=== PATIENT | male | born 1980 | race Caucasian/White ===

== ENCOUNTER 2021-09-17 11:28 | Emergency (ER) | payer SELFPAY ==
[2021-09-17 11:33] VITALS: BP 123/79; PULSE 74; RESP 18; TEMP 36.6; O2SAT 98; BMI 25.1
[2021-09-17 12:41] LABS: Appearance Urine Cloudy (Clear); Bilirubin Urine Negative (Negative); Color Urine Red (Yellow); Glucose Urine Negative (Negative); Ketones Urine Negative (Negative); Specific Gravity Urine 1.025 (1.000-1.030)
[2021-09-17 12:42] LABS: Blood Urine 3+ (Negative); Leukocyte Esterase Urine 2+ (Negative); Nitrite Urine Negative (Negative); Protein Urine 2+ (Negative)
[2021-09-17 12:46] LABS: RBC Urine >100 (0-2); Squamous Epithelial Cell Urine Few (None-Few); WBC Urine 50-100 (0-5)
--- NOTE | 2021-09-17 13:47 | CRLHL7_ITS ---
For Patients: As a result of the Century Cures Act, medical imaging exams and procedure reports are released immediately into your electronic medical record. You may view this report before your referring provider. If you have questions, please contact your health care provider. INDICATION: HEMATURIA CT ABDOMEN AND PELVIS WITHOUT CONTRAST TECHNIQUE: Multidetector CT imaging was performed through the abdomen and pelvis without intravenous contrast administration. Coronal and sagittal reconstructions were generated. COMPARISON: None. FINDINGS: The exam is mildly limited by motion. Lower chest: Lung bases are clear. Liver: Suggestion of poorly defined 2.5 centimeter hypodense area in the central liver just superior to the gallbladder fossa, as on image 34 of series 2 and image 27 of series 4, not well characterized. Gallbladder and bile ducts: No gallbladder wall thickening or calcified gallstones. No biliary dilation identified. Pancreas: Unremarkable. Spleen: Normal. Adrenals: No nodules or masses. Kidneys, ureters, and urinary bladder: No urinary tract stones are identified. No hydronephrosis is noted. No obvious renal masses. Diffuse bladder wall prominence due to nondistention. No bladder mass or definite pathologic wall thickening. Gastrointestinal tract: Normal caliber bowel without apparent obstruction or wall thickening. Appendix not clearly identified. Vascular structures: Normal caliber abdominal aorta. Trace atherosclerotic calcification. Peritoneum: No free air, abscess, or significant free fluid. Lymph nodes: No pathologically enlarged nodes identified. Reproductive organs: No pelvic masses. Bones: Normal for age. IMPRESSION: 1. No acute abnormality identified. No urinary tract stones are seen. No definite cause for the patient`s hematuria is demonstrated. 2. Question of 2.5 centimeter hypodense lesion in the central liver just superior to the gallbladder fossa, not well characterized. Outpatient liver MRI is suggested for further evaluation. ADAN FISHMAN MD [facility] Dictated by Angel Castro MD @ 09/17/2021 3:50:12 PM Please note that all CT scans at this facility use dose modulation, iterative reconstruction, and/or weight-based dosing when appropriate to reduce radiation dose to as low as reasonably achievable. Dictated by: Mervin Fishman MD @ 09/17/2021 15:51:42 (Electronically Signed)
[2021-09-17] MEDS: 0.9 % SODIUM CHLORIDE 1000 ml 1,000 ML IV (14:15)
[2021-09-17 14:17] VITALS: BP 126/84; PULSE 65; RESP 18; O2SAT 98
[2021-09-17 14:33] LABS: Basophils Percent Auto 0.2 % (0.0-3.0); Eosinophils Percent Auto 1.8 % (0.0-7.0); Hematocrit 47.1 % (37.0-53.0); Hemoglobin* 15.9 gm/dL (13.5-17.5); Immature Granulocytes Abs Auto 0.06 K/uL (0.00-0.30); Mean Corpuscular HGB Conc 34 gm/dL (32-36); Mean Corpuscular Hemoglobin 30 pg (26-34); Mean Corpuscular Volume 90 fL (80-100); Monocytes Percent Auto 5.6 % (0.0-11.0); Neutrophils Percent Auto 76.9 % (42.0-72.0); Platelet Count* 248 K/uL (140-440); RDW Coefficient of Variation % 12.4 % (11.5-15.5); Red Blood Count 5.23 m/uL (4.30-5.90); White Blood Count* 11.51 K/uL (4.50-11.00)
[2021-09-17 14:35] LABS: Slide Review Reflex No
--- NOTE | 2021-09-17 14:37 | ED_ITS ---
HPI - General Adult General Date Seen: 09/17/21 Chief complaint: Urogenital Problems, Male Stated complaint: Blood in urine Time Seen by Provider: 09/17/21 12:36 Source: patient Mode of arrival: ambulatory Limitations: no limitations History of Present Illness HPI narrative: Patient is a 40-year-old gentleman who presents here with blood in his urine. He has noted for last couple days, is associated with mild dysuria at least yesterday. He had some back pain for the last 3 weeks after he injured self on the job. He says he may have has some slight abdominal discomfort with this also. He has had no fevers or chills he has no previous history of UTIs in a monogamous relationship and he said STD is absolutely out of the question. He has had no other really penile or testicular pain. Does not localize pain to either groins also. Has not really tried any Tylenol or ibuprofen for this but was taking it earlier for his back. He is able to pee and there is no radiation of discomfort. Related Data Home Medications Medication Instructions Recorded Confirmed No Known Home Medications 09/17/21 09/17/21 Allergies Allergy/AdvReac Type Severity Reaction Status Date / Time No Known Drug Allergies Allergy Verified 09/17/21 11:33 Review of Systems Status of ROS: Reports: 10 or more systems reviewed and unremarkable except as noted in History and below [facility] Social History Smoking Status: Never smoker Do you use any of these nicotine containing products: None Second hand tobacco smoke exposure: Yes How often do you have a drink containing alcohol: never How often do you have six or more drinks on one occasion: Never AUDIT-C Alcohol total score: 0 Non-prescribed substance use: over the counter (eg: immodium) Non-prescribed substance use details: melatonin service: No Exam Narrative: Exam Narrative: Patient is a delightful 40-year-old gentleman no apparent distress he appears anxious to me here. Pupils equal round reactive to light there is no scleral icterus TMs normal oropharynx normal neck is supple full range of motion chest is clear heart sounds are normal no clicks murmurs or gallops abdomen is soft there is no guarding no past splenomegaly. No CVA tenderness is noted he is able to bend over flex and almost touch his toes backward extension is normal but he does have tight hamstrings. His abdomen is soft and scaphoid there is no guarding no hepatosplenomegaly noted normal male genitalia circumcised, no discharge from his urethra, and testicles both descended normal there is no swelling to indicate hernias noted bilaterally. Const: Vital Signs, click to edit/add: Vital Signs - 24 hr 09/17/21 11:33 09/17/21 14:17 09/17/21 15:40 Temperature 97.8 F Pulse Rate [Right Pulse Oximeter] 74 65 58 L Respiratory Rate 18 18 Blood Pressure [Le ft Upper Arm] 126/84 126/91 H Blood Pressure [Ri ght Upper Arm] 123/79 Pulse Oximetry 98 98 100 Documenting provider has reviewed patient's vital signs: yes Common normals: no apparent distress Course Course Hospital Course: Patient is seen and assessed, laboratory work is reviewed he does have a lot of white cells in his urine, I wonder more but area with right ice, he tells me is a monogamous relationship but I worry that we will miss the GC and chlamydia. Will give him IV Rocephin along with some doxycycline to cover for these organisms, and I will get him to follow-up for consideration of a liver MRI with primary care. Is now a primary care physician but Dr. Pavon is always he willing to see people. I spoke him his CT scan did otherwise did not show a stone. Vital Signs Vital signs: Initial Vital Signs Temperature 97.8 F 09/17/21 11:33 Temperature Source Temporal Artery Scan 09/17/21 11:33 Pulse Rate 74 09/17/21 11:33 Respiratory Rate 18 09/17/21 11:33 Blood Pressure 123/79 09/17/21 11:33 Blood Pressure Mean 93 09/17/21 11:33 Blood Pressure Position Sitting 09/17/21 11:33 Pulse Oximetry 98 09/17/21 11:33 Oxygen Delivery Method 09/17/21 11:33 Vital Signs Temperature 97.8 F 09/17/21 11:33 Pulse Rate 74 09/17/21 11:33 Respiratory Rate 18 09/17/21 11:33 Blood Pressure 123/79 09/17/21 11:33 Pulse Oximetry 98 09/17/21 11:33 Temperature 97.8 F 09/17/21 11:33 Pulse Rate 58 L 09/17/21 15:40 Respiratory Rate 18 09/17/21 14:17 Blood Pressure 126/91 H 09/17/21 15:40 Pulse Oximetry 100 09/17/21 15:40 Medical Decision Making MDM Narrative Medical decision making narrative: Differential diagnosis includes but is not limited to nephritic syndrome, uro genital malignancy, pyelonephritis, kidney stone, urethritis, here general trauma, UTI, and strep to coccus pharyngitis. This includes the possible complication of pyelonephritis progressing to sepsis. Life-threatening complications thus are reviewed I think would be reasonable to get a urine, CT scan, blood test, I reassured him that I think it is unlikely that this is a significant cause but he may need urologic follow-up. Medical Records Medical records reviewed: Yes I reviewed the patient's medical records Lab Data Lab results reviewed: Yes I reviewed the patient's lab results Labs: Lab Results 09/17/21 09/17/21 09/17/21 Range/Units 12:10 14:10 14:10 WBC 11.51 H (4.50-11.00) K/uL RBC 5.23 (4.30-5.90) m/uL Hgb 15.9 (13.5-17.5) gm/dL Hct 47.1 (37.0-53.0) % MCV 90 (80-100) fL MCH 30 (26-34) pg MCHC 34 (32-36) gm/dL RDW Coeff of Julissa 12.4 (11.5-15.5) % Plt Count 248 (140-440) K/uL Neut % (Auto) 76.9 H (42.0-72.0) % Lymph % (Auto) 15.0 L (20-44) % [place] % (Auto) 5.6 (0.0-11.0) % Eos % (Auto) 1.8 (0.0-7.0) % Baso % (Auto) 0.2 (0.0-3.0) % Neut # (Auto) 8.90 H (1.7-7.0) K/uL Lymph # (Auto) 1.70 (0.90-2.90) K/uL [place] # (Auto) 0.60 (0.00-0.90) K/UL Eos # (Auto) 0.20 (0.00-0.50) K/uL Baso # (Auto) 0.00 (0.00-0.30) K/uL Abs Immat Gran (auto) 0.06 (0.00-0.30) K/uL Sodium 139 (135-149) mmol/L Potassium 3.8 (3.6-5.1) mmol/L Chloride 105 (96-114) mmol/L Carbon Dioxide 28 (20-32) mmol/L BUN 14 (5-24) mg/dL Creatinine 1.2 (0.5-1.5) mg/dL Estimated Creat Clear 87.15 Estimated GFR 78 ml/min Glucose 94 (60-115) mg/dL Calcium 9.2 (8.4-10.6) mg/dL Urine Color Red A (Yellow) Urine Appearance Cloudy A (Clear) Urine pH 6.0 (5.0-8.5) Ur Specific [place] 1.025 (1.000-1.030) Urine Protein 2+ A (Negative) Urine Glucose (UA) Negative (Negative) Urine Ketones Negative (Negative) Urine Blood 3+ A (Negative) Urine Nitrite Negative (Negative) Urine Bilirubin Negative (Negative) Urine Urobilinogen 1.0 (0.2-1.0) Ur Leukocyte Esterase 2+ A (Negative) Urine RBC >100 A (0-2) Urine WBC 50-100 A (0-5) Ur Squamous Epith Cells Few (None-Few) Urine Bacteria None (None) Urine Trichomonas TNP Imaging Data CT scan - abdomen: Attestation: I have reviewed the pertinent imaging results. My impression: Negative CT of the abdomen, by my review Radiologist's impression: Patient: SHU SHANE Facility:?[facility] Patient ID:?[id number] Site Patient ID:?[id number]. Site :?[id number] Study:?CT Abdomen/Pelvis w/o Contrast-09/17/2021 2:43:09 PM Ordering Physician:Micki Pollard Final Report: INDICATION: HEMATURIA CT ABDOMEN AND PELVIS WITHOUT CONTRAST TECHNIQUE: Multidetector CT imaging was performed through the abdomen and pelvis without intravenous contrast administration. Coronal and sagittal reconstru ctions were generated. COMPARISON: None. FINDINGS: The exam is mildly limited by motion. Lower chest: Lung bases are clear. Liver: Suggestion of poorly defined 2.5 centimeter hypodense area in the central liver just superior to the gallbladder fossa, as on image 34 of series 2 and image 27 of series 4, not well characterized. Gallbladder and bile ducts: No gallbladder wall thickening or calcified gallstones. No biliary dilation identified. Pancreas: Unremarkable. Spleen: Normal. Adrenals: No nodules or masses. Kidneys, ureters, and urinary bladder: No urinary tract stones are identified. No hydronephrosis is noted. No obvious renal masses. Diffuse bladder wall prominence due to nondistention. No bladder mass or definite pathologic wall thickening. Gastrointestinal tract: Normal caliber bowel without apparent obstruction or wall thickening. Appendix not clearly identified. Vascular structures: Normal caliber abdominal aorta. Trace atherosclerotic calcification. Peritoneum: No free air, abscess, or significant free fluid. Lymph nodes: No pathologically enlarged nodes identified. Reproductive organs: No pelvic masses. Bones: Normal for age. IMPRESSION: 1. No acute abnormality identified. No urinary tract stones are seen. No definite cause for the patient`s hematuria is demonstrated. 2. Question of 2.5 centimeter hypodense lesion in the central liver just superior to the gallbladder fossa, not well characterized. Outpatient liver MRI is suggested for further evaluation. ADAN FRANKLIN MD [facility] Dictated by Angel Castro MD @ 09/17/2021 3:50:12 PM Please note that all CT scans at this facility use dose modulation, iterative reconstruction, and/or weight-based dosing when appropriate to reduce radiation dose to as low as reasonably achievable. Dictated by: Mervin Franklin MD @ 09/17/2021 15:51:42 (Electronic Signature) Discharge Plan Discharge Clinical Impression: Lesion of liver, Hematuria, Urethritis Patient Disposition: Home, Self-Care Condition: Stable Instructions: Nonspecific Urethritis in Men (ED), Urinary Tract Infection in Men (ED), Hematuria (ED) Additional Instructions: Home rest antibiotics as directed I think there is a little infection in either blue bladder or the urethra causing the blood in her urine. The CT scan did not show any acute abnormality there is the small spot on your liver on the right side. That will require an outpatient MRI. Appointment given for Dr. Pavon will set you up. To see him in follow-up Prescriptions: No Action No Known Home Medications 0RF Follow Up/Referrals: Adan Pavon MD [Staff Physician] - Provider,Not a Local [Primary Care Provider] - Stand Alone Forms: [employer] Info Instructions
[2021-09-17 14:46] LABS: Chloride* 105 mmol/L (96-114); Potassium* 3.8 mmol/L (3.6-5.1); Sodium* 139 mmol/L (135-149)
[2021-09-17 14:49] LABS: Blood Urea Nitrogen* 14 mg/dL (5-24); Carbon Dioxide* 28 mmol/L (20-32); Creatinine* 1.2 mg/dL (0.5-1.5); Est. Creatinine Clearance* 87.15; Estimated Glomerular Filt Rate 78 ml/min
[2021-09-17 14:50] LABS: Calcium* 9.2 mg/dL (8.4-10.6); Glucose* 94 mg/dL (60-115)
[2021-09-17 15:40] VITALS: BP 126/91; PULSE 58; O2SAT 100
[2021-09-17] MEDS: cefTRIAXone 500 MG in 0.9 % SODIUM CHLORIDE Mini-bag 100 ML 200 MG IVPB (16:26)
[2021-09-17 17:03] LABS: Chlamydia DNA Amplified* NOT DETECTED (No Detected); GC DNA Amplified* NOT DETECTED (No Detected)
== END 2021-09-17 17:12 | disposition home or self-care (01) ==
PROVIDERS: Emergency Provider Family Medicine
DX: R31.9 Hematuria, unspecified (principal); N34.2 Other urethritis
CPT/HCPCS: 36415; 74176; 80048; 81001; 85025; 87086; 87186; 87491; 87591; 96365; 96372; 99284; J0696; J7030

== ENCOUNTER 2023-07-17 12:37 | Emergency (ER) | payer OTHER, BC, SELFPAY ==
[2023-07-17 12:41] VITALS: BP 124/83; PULSE 78; RESP 18; TEMP 36.9; O2SAT 97; BMI 24.5
--- NOTE | 2023-07-17 15:13 | ED.GENADULT ---
HPI - General Adult General Date Seen: 07/17/23 Chief complaint: Fall/Minor Trauma Stated complaint: Fall, lower back/head pain Time Seen by Provider: 07/17/23 14:55 History of Present Illness HPI narrative: This is a pleasant 42-year-old gentleman presenting to the ER today with concern that he needs an evaluation for injuries after he slipped and fell. 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 He had been working since 10:00 a.m. last night and then slipped at about 7 5 this morning. He he slipped and fell onto a wet tile floor. He fell from standing height. He hit his head. No loss of consciousness. He does not take any anticoagulants. He finished up his shift this morning. He did call in to be off work tonight and his employer told him to come to the ER for evaluation. He has no complaints at this time. He says he would not have come to the ER if his employer did not require him to do so. Related Data Home Medications ?Medication ?Instructions ?Recorded ?Confirmed No Known Home Medications 09/17/21 07/17/23 Allergies Allergy/AdvReac Type Severity Reaction Status Date / Time No Known Drug Allergies Allergy Verified 09/17/21 11:33 [facility] Social History Smoking Status: Never smoker Do you use any of these nicotine containing products: None Second hand tobacco smoke exposure: Yes How often do you have a drink containing alcohol: never How often do you have six or more drinks on one occasion: Never AUDIT-C Alcohol total score: 0 Non-prescribed substance use: over the counter (eg: immodium) Non-prescribed substance use details: melatonin service: No Exam Narrative: Exam Narrative: Constitutional: Appears well-developed and well-nourished. Alert. Conversant. Non toxic. HENT: Head: Atraumatic. No depressed skull fracture, Raccoon Eyes, Haider's sign, or hemotympanum. Face normal. TMs normal Nose: Nose normal. Mouth/Throat: Oral mucosa is clear and moist. no trismus. Pharynx normal. Tonsils symmetric. No tonsillar enlargement, erythema, or exudate. Eyes: Conjunctivae normal. EOM normal. Pupils equal, round, and reactive to light. No scleral icterus. Neck: Normal range of motion. Neck supple. No tracheal deviation present. Cardiovascular: Normal rate, regular rhythm. No gallop. No friction rub. No murmur heard. Symmetric radial artery pulses Pulmonary/Chest: Effort normal. No stridor. No respiratory distress. No wheezes. No rales. No rhonchi . No tenderness. Abdominal: Soft. Bowel sounds normal. No distension. No mass. No tenderness. No rebound. No guarding. Musculoskeletal: No midline cervical, thoracic, lumbar spine tenderness or step-off. RUE: Normal range of motion. No tenderness. No deformity LUE: Normal range of motion. No tenderness. No deformity Pelvis is stable. RLE: Normal range of motion. No edema. No tenderness. No deformity LLE: Mild tenderness on left posterolateral hip which she thinks is probably bruised. Normal range of motion. No edema. No tenderness. No deformity Neurological: Mental status normal. Attention normal. Alert and oriented x3. GCS 15. Memory normal. Speech fluent. Cognition normal. Cranial Nerves intact II-XII except I did not formally test gag or visual acuity. EOMI. Palate elevates symmetrically and tongue protrudes in the midline. Strength: 5/5 trapezius on the right and left 5/5 deltoid on the right and left 5/5 biceps on the right and left 5/5 triceps on the right and left 5/5 reception agent on the right and left 5/5 thumb opposition on the right and left 5/5 finger abduction on the right and left 5/5 hip flexors (L3) on the right and left 5/5 quadriceps (L4) on the right and left 5/5 tibialis anterior on the right and left 5/5 EHL (L5) on the right and left 5/5 gastrocnemius (S1) on the right and left 5/5 hamstring on the right and left Sensation intact to light touch in both upper extremities (C4-T1) Sensation intact to light touch in Both lower extremities (L4-S1). Finger to nose and coordination normal. Gait normal. Skin: Skin is warm and dry. No rash noted. No pallor. Normal capillary refill. Psychiatric: Normal mood. Normal affect. Const: Vital Signs, click to edit/add: Vital Signs - 24 hr 07/17/23 12:41 Temperature 98.5 F Pulse Rate [Apical ] 78 Respiratory Rate 18 Blood Pressure [Ri ght Upper Arm] 124/83 Pulse Oximetry 97 Oxygen Delivery Me thod Room Air Course Vital Signs Vital signs: Initial Vital Signs Temperature 98.5 F 07/17/23 12:41 Temperature Source Temporal Artery Scan 07/17/23 12:41 Pulse Rate 78 07/17/23 12:41 Pulse Rhythm Regular 07/17/23 12:41 Respiratory Rate 18 07/17/23 12:41 Blood Pressure 124/83 07/17/23 12:41 Blood Pressure Mean 96 07/17/23 12:41 Blood Pressure Position Sitting 07/17/23 12:41 Pulse Oximetry 97 07/17/23 12:41 Oxygen Delivery Method Room Air 07/17/23 12:41 Vital Signs Temperature 98.5 F 07/17/23 12:41 Pulse Rate 78 07/17/23 12:41 Respiratory Rate 18 07/17/23 12:41 Blood Pressure 124/83 07/17/23 12:41 Pulse Oximetry 97 07/17/23 12:41 Oxygen Delivery Method Room Air 07/17/23 12:41 Temperature 98.5 F 07/17/23 12:41 Pulse Rate 78 07/17/23 12:41 Respiratory Rate 18 07/17/23 12:41 Blood Pressure 124/83 07/17/23 12:41 Pulse Oximetry 97 07/17/23 12:41 Oxygen Delivery Method Room Air 07/17/23 12:41 Medical Decision Making MDM Narrative Medical decision making narrative: This patient was referred to the ER today by his employer for evaluation of injuries after he had a ground level slip and fall on a wet watery ramp/tile floor early this morning. He did strike the back of his head on the floor but had no LOC. He had a mild headache which is now resolved after ibuprofen The differential diagnosis includes skull fracture, epidural hematoma, subdural hematoma, intracerebral hemorrhage, and traumatic subarachnoid hemorrhage; all of these are highly unlikely in this clinical setting. This patient denies severe headache, seizure, and has no focal neurological findings. Patient did not have any seizure after the injury, and is not anticoagulated . The patient has a normal GCS. They have not had any significant vomiting. They have no sign of open or depressed skull fracture /basilar skull fracture. They are less than age 65. The patient did not have prolonged LOC, sleepiness, repeated emesis, poor orientation, or significant irritability. They are low risk by the Brazilian head CT rule. I have discussed the risk/benefit analysis with the patient and family regarding CT imaging. We have decided to hold off on this at this time. The patient/family understand that they must return if any red flags appear/develop in the coming hours/days, as this may represent an indication to perform a CT scan. I have noted that red flags include: headaches that get worse, increased drowsiness, strange behavior, repetitive speech, seizures, repeated vomiting, growing confusion, increased irritability, slurred speech, weakness or numbness, and loss of responsiveness. This information will also be provided in writing at discharge. I have discussed the second impact syndrome, and the importance of not sustaining repeated concussion in the next 1-2 weeks. Post concussive syndrome is also discussed. Patient also has mild discomfort in the left for history her hip but has been bearing weight normally and has no evidence for any fracture of the bony pelvis or hip. At this point and he needs x-rays. He is in agreement. The patient's questions were answered. They have a responsible adult to accompany them home. Discharge Plan Discharge Clinical Impression: Contusion of hip, Concussion, Abrasion forearm Patient Disposition: Home, Self-Care Condition: Stable Instructions: Concussion (ED), Abrasion (ED), Hip Contusion (ED) Additional Instructions: As we discussed, please come back to the ER right away if you have worsening symptoms or any concerns, especially if you have worsening headache, blurry vision, nausea and vomiting, confusion, or dizziness. Avoid dangerous activities or contact sports for 7 days to allow your brain to heal from this concussion. Use ibuprofen or Tylenol if needed for mild body aches or pain You should avoid heavy lifting or strenuous activity for the next 24 hours. You can return to normal activities after that his lungs remain asymptomatic. If you have any ongoing concerning symptoms beyond 72 hours, please see your doctor, follow up with the worker's comp doctor, or come back to the ER for recheck. Prescriptions: No Action No Known Home Medications Follow Up/Referrals: Provider,Not a Local [Primary Care Provider] - Stand Alone Forms: [employer] Info Instructions
== END 2023-07-17 15:47 | disposition home or self-care (01) ==
PROVIDERS: Emergency Provider Emergency Medicine
DX: S06.0X0A Concussion without loss of consciousness, initial encounter (principal); S70.02XA Contusion of left hip, initial encounter; W18.30XA Fall on same level, unspecified, initial encounter; Y99.0 Civilian activity done for income or pay
CPT/HCPCS: 99283